=== PATIENT | female | born 1990 | race Caucasian/White ===

== ENCOUNTER 2020-09-20 15:43 | Emergency (ER) | payer OTHER, SELFPAY ==
[2020-09-20 15:55] VITALS: BP 152/97; PULSE 98; RESP 20; TEMP 36.3; O2SAT 98
--- NOTE | 2020-09-20 16:01 | ED.GENADULT ---
HPI - General Adult General Chief complaint: Upper Respiratory Infection Stated complaint: Sore Throat Source: patient Mode of arrival: ambulatory Limitations: no limitations History of Present Illness HPI narrative: 30 y/o female. Presents to [facility] today with acute complaints of sore throat symptoms for past 72 hours. She reports a strong history of streptococcal sore throat, and that she usually gets it every year around this time . Pt reports to have the same symptoms she always does . However, denies fever, chills. No dyspnea, dysphagia, oropharyngeal swelling, or involuntary drooling. No known ill contacts. She is actively employed at a local [employer], and states to have Just had a negative Covid test yesterday . No additional acute c/o upon PE. Related Data Home Medications Medication Instructions Recorded Confirmed metformin mg 09/20/20 topiramate [Topamax] 09/20/20 Allergies Allergy/AdvReac Type Severity Reaction Status Date / Time azithromycin Allergy Intermediate Rash Verified 09/20/20 16:06 Penicillins Allergy Intermediate Rash Verified 09/20/20 16:06 Review of Systems Review of Systems: Narrative: CONSTITUTIONAL: Denies fever, chills, sweats. EYES: Denies visual changes, redness, discharge. ENT: Positive Sore throat. Denies rhinorrhea, congestion, otalgia. CARDIOVASCULAR: Denies chest pain, palpitations, edema. RESPIRATORY: Denies dyspnea, wheezing, cough GASTROINTESTINAL: Denies abdominal pain, nausea, vomiting, diarrhea. GENITOURINARY: Denies dysuria, hematuria, abnormal discharge SKIN: Denies rash or itching. MUSCULOSKELETAL: Denies acute back pain, joint pain, or myalgia. NEUROLOGIC: Denies numbness, or focal weakness. PSYCHIATRIC: Denies anxiety or depression. All systems reviewed & are unremarkable except as noted in HPI and below (HPI. ) PMFSH Comments At the time of my signature I agree with nursing past medical history, surgical, social, and family history. There is no relevant family history pertinent to the presenting complaint. Exam Narrative: Exam Narrative: GENERAL: This is a well-nourished, well-developed patient, in no apparent distress. HEAD: normocephalic, atraumatic. EYES: PERRL. Sclera clear/white. Vision is grossly intact. EARS: External ears normal, auditory canals clear and without drainage, TMs normal without perforation. Hearing grossly intact. NOSE: External nose normal with no obvious nasal discharge, nares without redness, no rhinorrhea. THROAT: Mucous membranes moist. Posterior pharynx erythema and what appears to be mild exudate. No oropharyngeal swelling or airway concern. NECK: Neck supple, non-tender without lymphadenopathy, masses or thyromegaly. CARDIOVASCULAR: Regular rate and rhythm without murmurs, gallops, or rubs. RESPIRATORY: Clear to auscultation. Breath sounds equal bilaterally. No wheezes, rales, or rhonchi. GASTROINTESTINAL: Abdomen soft, non-tender, nondistended. Bowel sounds are active. No hepato-splenomegaly, or palpable masses. No guarding. SKIN: warm, intact with no suspicious lesions or rash, good texture and turgor. NEURO: awake, alert, and oriented to person, place and time. There were no obvious focal neurologic abnormalities. Steady gait EXTREMITIES: Normal range of motion. No edema. No calf tenderness. Negative Homans sign bilaterally. BACK: Nontender without deformity or crepitance. No flank tenderness. NEURO: Alert and oriented x4. No focal neurological deficits. Course Course Emergency Course: Clinical impression and plan of care has been reviewed with client. Suspect Pharyngitis; however, based upon history could be potential early streptococcal sore throat. She will be started on Doxycycline regimen, secondary to Azithromycin and PCN allergy. Pt will be notified with additional culture reports, and/or required care plan changes. Covid 19 reported negative 1 day ago. OP POC, AVS, & Medication instructions have been reviewed
[2020-09-20 16:08] VITALS: BP 152/97; PULSE 98; RESP 20; TEMP 36.3; O2SAT 98
== END 2020-09-20 16:40 | disposition home or self-care (01) ==
PROVIDERS: Emergency Provider Nurse Practitioner Adult Health; PCP Internal Medicine
DX: J02.9 Acute pharyngitis, unspecified (principal); E11.9 Type 2 diabetes mellitus without complications
CPT/HCPCS: 87081; 87880; 99213; G0463